=== PATIENT | female | born 1935 | race Asian ===

== ENCOUNTER → 2016-05-24 | Outpatient (CLI) | payer MEDICARE, OTHER ==
--- NOTE | ~2016-05-24 | CR181 ---
[facility] A Service of [facility] RADIOLOGY TEXT RESULTS PATIENT: KARIN DURANT LOCATION: [facility] : 37 UNIT #: [id number] AGE: [address]: TIFFANY GUPTA APRN SEX: F ORDER DR: [id number] [facility] [address] [place], [place] [address] [id number] O MR#: [id number] Acc #: [id number] NAME: KARIN DURANT : 1935 SEX: F STUDY DATE/TIME: 05/24/2016 13:17 UNIT: [facility] ROOM: STUDY DESCRIPTION: CR Lumbar Spine 2 or 3 Views Attending Physician: Tiffany Gupta Aprn Referring Physician: Tiffany Gupta Aprn Ordering Physician: Tiffany Gupta Aprn Primary Care Physician: Sourav LizamaPRebaRLuli MEDICAL IMAGING REPORT This report is preliminary unless electronic signature is present EXAM Lumbar series 05/24/2016 INDICATIONS 81-year-old female with lumbar pain, back pain on the left and posteriorly, lateral hip pain extends down the left leg, symptoms a month, no known injury. TECHNIQUE 3 views of the lumbar spine were performed. COMPARISON We have no comparisons. FINDINGS The lungs are osteoporotic. Frontal view demonstrates mild levoscoliosis centered at about the L3-4 level. There is minimal grade 1 antegrade listhesis of L5 on S1 probably related to degenerative disc disease. There is also at least mild associated facet arthropathy. Vertebral body heights and alignment are otherwise maintained. There is atherosclerotic disease of the aorta. IMPRESSION 1. Osteoporosis with grade 1 antegrade listhesis of L5 on S1 likely related to degenerative disc disease. No acute fracture or additional level of malalignment. 2. Atherosclerotic disease. Dictated by... Nathanael Gamboa M.D. THIS IS AN ELECTRONICALLY VERIFIED REPORT Nathanael Gamboa M.D. at 06/01/2016 5:35 PM [facility] A Service of [facility] RADIOLOGY TEXT RESULTS PATIENT: KARIN DURANT LOCATION: [facility] : 37 UNIT #: [id number] AGE: [address]: TIFFANY GUPTA APRN SEX: F ORDER DR: CHLOE/desire TD: 05/31/2016 18:42 JOB #: [id number] MEDICAL IMAGING REPORT Page 1 of 1 COPY
== END | disposition home or self-care (01) ==
LOC: CRAD 12:58
DX: M54.32 Sciatica, left side (principal)
CPT/HCPCS: 72100

== ENCOUNTER → 2016-06-24 | Outpatient (CLI) | payer MEDICARE, OTHER ==
--- NOTE | ~2016-06-24 | MY11 ---
[facility] A Service of [facility] RADIOLOGY TEXT RESULTS PATIENT: KARIN DURANT LOCATION: [facility] : 37 UNIT #: [id number] AGE: [address]: TIFFANY GUPTA APRN SEX: F ORDER DR: [id number] [facility] [address] [place], [place] [address] [id number] O MR#: [id number] Acc #: [id number] NAME: KARIN DURANT : 1935 SEX: F STUDY DATE/TIME: 06/24/2016 10:42 UNIT: [facility] ROOM: STUDY DESCRIPTION: MY Mammogram Screening Dig Rachid Attending Physician: Tiffayn Gupta Aprn Referring Physician: Tiffany Gupta Aprn Ordering Physician: Tiffany Gupta Aprn Primary Care Physician: Tiffany Gupta Aprn MEDICAL IMAGING REPORT This report is preliminary unless electronic signature is present EXAM Digital screening mammogram 06/24/2016 [facility] HISTORY 81-year-old woman previous right lumpectomy. Annual screen. COMPARISON Mammograms 12/13/2011, 03/05/2013, 04/23/2014, 06/24/2015 FINDINGS Digital imaging of each breast was completed utilizing screening probe protocol. An additional true lateral view of the right breast is included. Lumpectomy marker is placed on the right. Review includes FDA-approved CAD device. Breast parenchyma is fatty replaced bilaterally. Post lumpectomy distortion on the right appears stable. There is no interval occurring breast mass. There are no suspicious microcalcifications and no suspicious architectural deformity. IMPRESSION Negative mammogram. Stable post lumpectomy distortion right breast. Annual screening recommended. Patient's over the age of 40 are entered into a reminder system with target due date for the next mammogram. A result letter will be sent to the patient. BIRADS: 1 Negative Dictated by... Vj Valero M.D. [facility] A Service of [facility] RADIOLOGY TEXT RESULTS PATIENT: KARIN DURANT LOCATION: [facility] : 37 UNIT #: [id number] AGE: [address]: TIFFANY GUPTA APRN SEX: F ORDER DR: THIS IS AN ELECTRONICALLY VERIFIED REPORT Vj Valero M.D. at 06/24/2016 12:43 PM GIOVANNY/desire TD: 06/24/2016 11:59 JOB #: [id number] MEDICAL IMAGING REPORT Page 1 of 1 COPY
== END | disposition home or self-care (01) ==
LOC: CWCC 10:29
DX: Z12.31 Encounter for screening mammogram for malignant neoplasm of breast (principal); Z98.890 Other specified postprocedural states
CPT/HCPCS: G0202